=== PATIENT | male | born 1935 | race Caucasian/White ===

== ENCOUNTER → 2017-08-20 | Outpatient (CLI) | payer MEDICARE ==
[~2017-08-20] MED LIST: ATOR40TA52 PO; BICA50TA7 PO; DONE10TA40 PO; LOSA100T33 PO; MEMA10TA PO; METO25TA62 PO
== END | disposition home or self-care (01) ==
LOC: XY 10:29
PROVIDERS: ATTEND Internal Medicine
DX: C61 Malignant neoplasm of prostate (principal); I10 Essential (primary) hypertension; I25.10 Atherosclerotic heart disease of native coronary artery without angina pectoris; J44.9 Chronic obstructive pulmonary disease, unspecified
CPT/HCPCS: 78306; A9503